=== PATIENT | female | born 1945 | race Caucasian/White ===

== ENCOUNTER → 2025-02-02 08:31 | Outpatient (REF) | payer OTHER, SELFPAY | LOC: HWRCS 08:31 | PROVIDERS: ATTENDING PHYSICIAN Nuclear Medicine Nuclear Cardiology; FAMILY PHYSICIAN Family Medicine | DX: R07.89 Other chest pain (principal); R06.02 Shortness of breath; R42 Dizziness and giddiness; R06.09 Other forms of dyspnea; R55 Syncope and collapse | CPT/HCPCS: 78452; 93017; A9500; J2785 ==

== ENCOUNTER → 2025-02-12 08:20 | Outpatient (REF) | payer OTHER, SELFPAY | LOC: HWRCS 08:20 | PROVIDERS: ATTENDING PHYSICIAN Nuclear Medicine Nuclear Cardiology; FAMILY PHYSICIAN Family Medicine | DX: R07.89 Other chest pain (principal); R06.02 Shortness of breath; R42 Dizziness and giddiness; R06.09 Other forms of dyspnea; R55 Syncope and collapse | CPT/HCPCS: 93306 ==